=== PATIENT | female | born 2000 ===

== ENCOUNTER 2019-06-14 19:27 | Outpatient (CLI) | payer OTHER, MEDICAID ==
[2019-06-14] MEDS ORDERED: LACTATED RINGERS 500 ML IV ONE ×2 (21:00→21:22)
[2019-06-14] MEDS: BRETHINE SUB-Q SCH ×2 (22:25→23:50)
[2019-06-14 22:33] LABS: Bilirubin,Urine NEG (Negative); Blood,Urine NEG (Negative); Color,Urine Amber (Yellow); Mucus,Urine 3+ /HPF; Protein,Urine <15 mg/dL mg/dL (Negative); Urobilinogen,Urine < 2.0 mg/dL (<2.0)
[2019-06-14] MEDS ORDERED: BRETHINE ONE (23:30)
[2019-06-14 23:53] VITALS: BP 112/64
--- NOTE | 2019-06-15 01:41 | Ultrasound Report ---
US OB limited, US OB BPP wo non-stress INDICATION / CLINICAL INFORMATION: R/O Abruption.. COMPARISON: None available. FINDINGS: Single live fetus is present in cephalic presentation. The placenta is posterior and grade 1 without evidence of abruption. Heart rate is 125. BPP is 8 out of 8 IMPRESSION: Single live fetus in cephalic presentation. No evidence of placental abruption. heart rate is 1 25. BPP is 8 out of 8 Signer Name: Israel Miranda MD FACEduardo Signed: 06/15/2019 1:36 AM Workstation Name: [id number]
== END 2019-06-15 00:40 | disposition home or self-care (01) ==
LOC: EDSTATUS 19:56 → TRG 20:00
PROVIDERS: ATTEND Obstetrics & Gynecology
DX: O47.03 False labor before 37 completed weeks of gestation, third trimester (principal); Z3A.33 33 weeks gestation of pregnancy; V49.49XA Driver injured in collision with other motor vehicles in traffic accident, initial encounter; Y93.89 Activity, other specified; Y92.89 Other specified places as the place of occurrence of the external cause; Y99.8 Other external cause status
CPT/HCPCS: 59025; 76815; 76819; 81001; 96372; J3105; J7120; 96360; 96361